=== PATIENT | male | born 1940 | race Caucasian/White ===

== ENCOUNTER → 2020-12-06 | Outpatient (CLI) | payer MEDICARE, BC, OTHER ==
[2020-12-06 16:31] LABS: Chol/HDL Ratio 3.02; LDL Cholesterol,Calculated 87.8 mg/dL (0.0-131.0); VLDL Calculation 15.2 mg/dL (5.00-40.00)
== END | disposition home or self-care (01) ==
LOC: LABWHC1 09:20
PROVIDERS: ATTEND Internal Medicine Cardiovascular Disease
DX: E78.2 Mixed hyperlipidemia (principal)
CPT/HCPCS: 36415; 80061; 84450; 84460

== ENCOUNTER → 2022-12-19 | Outpatient (CLI) | payer MEDICARE, BC, OTHER ==
[2022-12-19 21:55] LABS: ALT 17 U/L (10-49); AST 16 U/L (14-35); Chol/HDL Ratio 2.65 Ratio; LDL Cholesterol,Calculated 83.5 mg/dL (0.0-131.0); VLDL Calculation 12.94 mg/dL (5.00-40.00)
== END | disposition home or self-care (01) ==
LOC: LABWHC1 11:28
PROVIDERS: ATTEND Internal Medicine Cardiovascular Disease
DX: E78.2 Mixed hyperlipidemia (principal)
CPT/HCPCS: 36415; 80061; 84450; 84460

== ENCOUNTER 2023-03-14 18:56 | Emergency (ER) | payer OTHER, MEDICARE, BC ==
[2023-03-14 19:14] VITALS: BP 139/80; PULSE 78; RESP 20; TEMP 97.9
--- NOTE | 2023-03-14 20:26 | ED ---
Extremity Problem HPI - General Chief complaint: Extremity Problem,Nontraumatic Stated complaint: THUMBS LOCKED UP Time Seen by Provider: 03/14/23 20:06 Source: patient Mode of arrival: ambulatory Limitations: no limitations - History of Present Illness Initial comments: Patient is an 82-year-old male who presents to the emergency department for some issue. Patient states both of his thumbs locked up prior to arrival. He states he was unable to move them for about 5 seconds. He does have history of trigger finger surgery in the left thumb several years ago. Patient denies any pain. He has not noticed any redness, swelling, warmth. No numbness or tingling. - Related Data Home Medications Medication Instructions Recorded Confirmed Aspirin 81 mg PO DAILY 11/17/14 10/24/15 Benazepril HCl 20 mg PO BID 11/17/14 10/24/15 Calcium/Magnesium/Zinc 1 each PO DAILY 11/17/14 10/24/15 [Pdzhsmc-Qoetewvqd-Tkpd Tablet] Simvastatin [Zocor] 40 mg PO HS 11/17/14 10/24/15 Allergies Allergy/AdvReac Type Severity Reaction Status Date / Time wet duck feathers AdvReac Rash/Hives Uncoded 03/14/23 19:13 Review of Systems ROS Statement: Those systems with pertinent positive or pertinent negative responses have been documented in the HPI. ROS Other: All systems not noted in ROS Statement are negative. Past Medical History Past Medical History: Atrial Fibrillation, Hypertension History of Any Multi-Drug Resistant Organisms: None Reported Past Surgical History: Ablation, Orthopedic Surgery Additional Past Surgical History / Comment(s): Surgery on left thumb for "Trigger Finger". cardiac ablation. Past Anesthesia/Blood Transfusion Reactions: No Reported Reaction Past Psychological History: No Psychological Hx Reported Smoking Status: Former smoker Past Alcohol Use History: None Reported Past Drug Use History: None Reported - Past Family History Mother Family Medical History: No Reported History General Exam Limitations: no limitations General appearance: alert, in no apparent distress Head exam: Present: atraumatic, normocephalic, normal inspection Respiratory exam: Present: normal lung sounds bilaterally. Absent: respiratory distress, wheezes, rales, rhonchi, stridor Cardiovascular Exam: Present: regular rate, normal rhythm, normal heart sounds. Absent: systolic murmur, diastolic murmur, rubs, gallop, clicks Extremities exam: Present: normal inspection, normal capillary refill, other (No erythema, swelling, warmth, tenderness of the bilateral hands. Patient has full range of motion of his hands and thumbs. There is no locking of the thumbs. No popping or clicking sensation. No nodules appreciated) Neurological exam: Present: alert, oriented X3, CN II-XII intact Psychiatric exam: Present: normal affect, normal mood Skin exam: Present: warm, dry, intact, normal color. Absent: rash Course Vital Signs 03/14/23 19:07 Temperature 97.9 F Pulse Rate 78 Respiratory 20 Rate Blood Pressure 139/80 O2 Sat by Pulse 99 Oximetry Medical Decision Making - Medical Decision Making Was pt. sent in by a medical professional or institution (, PA, THERMAL ENGINEER, urgent care, hospital, or skilled nursing...) When possible be specific @ -No Did you speak to anyone other than the patient for history (EMS, parent, family, police, friend...)? What history was obtained from this source @ -No Did you review nursing and triage notes (agree or disagree)? Why? @ -I reviewed and agree with nursing and triage notes Were old charts reviewed (outside hosp., previous admission, EMS record, old EKG, old radiological studies, urgent care reports/EKG's, skilled nursing records)? Report findings @ -No old charts were reviewed Differential Diagnosis (chest pain, altered mental status, abdominal pain women, abdominal pain men, vaginal bleeding, weakness, fever, dyspnea, syncope, headache, dizziness, GI bleed, back pain, seizure, CVA, palpatations, mental health)? @ -triigger finger, arthritis, fracture, cellulitis, tenosynovitis. This list is not meant to be all-inclusive EKG interpreted by me (3pts min.). @ -As above X-rays interpreted by me (1pt min.). @ -None done CT interpreted by me (1pt min.). @ -None done] U/S interpreted by me (1pt. min.). @ -[None done] What testing was considered but not performed or refused? (CT, X-rays, U/S, labs)? Why? @ -[None] What meds were considered but not given or refused? Why? @ -[None] Did you discuss the management of the patient with other professionals (professionals i.e. , PA, THERMAL ENGINEER, lab, RT, psych nurse, social work administrator, message broker developer, teacher, district fire management officer, spring encaser)? Give summary @ -[No] Was smoking cessation discussed for >3mins.? @ -[No] Was critical care preformed (if so, how long)? @ -[No] Were there social determinants of health that impacted care today? How? (Homelessness, low income, unemployed, alcoholism, drug addiction, transportation, low edu. Level, literacy, decrease access to med. care, custodial, rehab)? @ -[No] Was there de-escalation of care discussed even if they declined (Discuss DNR or withdrawal of care, Hospice)? DNR status @ -[No] What co-morbidities impacted this encounter? (DM, HTN, Smoking, COPD, CAD, Cancer, CVA, ARF, Chemo, Hep., AIDS, mental health diagnosis, sleep apnea, morbid obesity)? @ -[None] Was patient admitted / discharged? Hospital course, mention meds given and route, prescriptions, significant lab abnormalities, going to OR and other pertinent info. @ -Patient presenting for episode of bilateral thumb locking sensation. Patient does have history of trigger finger of the left thumb the physical exam is unremarkable there is no locking of the thumbs during my evaluation. No popping or clicking sensation. No nodules appreciated. No evidence of infection. Patient has full range of motion and no pain he will be discharged with orthopedic referral Undiagnosed new problem with uncertain prognosis? @ -[No] Drug Therapy requiring intensive monitoring for toxicity (Heparin, Nitro, Insulin, Cardizem)? @ -[No] Were any procedures done? @ -[No] Diagnosis/symptom? @ -thumb problem Acute, or Chronic, or Acute on Chronic? @ -acute Uncomplicated (without systemic symptoms) or Complicated (systemic symptoms)? @ -uncomplicated Side effects of treatment? @ -[No] Exacerbation, Progression, or Severe Exacerbation? @ -[No] Poses a threat to life or bodily function? How? (Chest pain, [place], [place], pneumonia, PE, COPD, DKA, ARF, appy, cholecystitis, CVA, Diverticulitis, Homicidal, Suicidal, threat to staff... and all critical care pts) @ -[No] Dr. Greer is my attending Disposition Clinical Impression: Thumb problem Disposition: HOME SELF-CARE Condition: Good Instructions (If sedation given, give patient instructions): Trigger Finger (ED) Additional Instructions: Follow-up with orthopedically impaired teacher in 1-2 days. Return to the emergency department if you experience new, concerning, or worsening symptoms. Is patient prescribed a controlled substance at d/c from ED?: No Referrals: Daniel Quintana MD [Primary Care Provider] - 1-2 days Susanne Llanos DO [Doctor of Osteopathic Medicine] - 1-2 days
== END 2023-03-14 20:37 | disposition home or self-care (01) ==
LOC: EC 18:56
DX: M79.644 Pain in right finger(s) (principal); I10 Essential (primary) hypertension; I48.91 Unspecified atrial fibrillation; Z87.891 Personal history of nicotine dependence; Z79.82 Long term (current) use of aspirin; Z79.899 Other long term (current) drug therapy
CPT/HCPCS: 99283

== ENCOUNTER 2023-03-27 16:05 | Emergency (ER) | payer MEDICARE, BC, OTHER ==
[2023-03-27 16:43] VITALS: TEMP 97.8
--- NOTE | 2023-03-27 17:49 | ED ---
Male Urogenital HPI - General Chief complaint: Urogenital Stated complaint: urinating blood Time Seen by Provider: 03/27/23 16:59 Source: patient Mode of arrival: ambulatory Limitations: no limitations - History of Present Illness Initial comments: Patient is an 82-year-old male presenting with chief complaint of hematuria. Patient states that about an hour prior to arrival he noticed that he was urinating blood. Patient has history of kidney stones, he denies any abdominal pain, flank pain, or suprapubic pain. No recent injury or trauma. No blood thinners. No fevers or chills. No nausea or vomiting. No dysuria. - Related Data Home Medications Medication Instructions Recorded Confirmed Aspirin 81 mg PO DAILY 11/17/14 10/24/15 Benazepril HCl 20 mg PO BID 11/17/14 10/24/15 Calcium/Magnesium/Zinc 1 each PO DAILY 11/17/14 10/24/15 [Hljlbsw-Gychhzbwh-Kqwj Tablet] Simvastatin [Zocor] 40 mg PO HS 11/17/14 10/24/15 Allergies Allergy/AdvReac Type Severity Reaction Status Date / Time wet duck feathers AdvReac Rash/Hives Uncoded 03/27/23 16:43 Review of Systems ROS Statement: Those systems with pertinent positive or pertinent negative responses have been documented in the HPI. ROS Other: All systems not noted in ROS Statement are negative. Past Medical History Past Medical History: Atrial Fibrillation, Hypertension History of Any Multi-Drug Resistant Organisms: None Reported Past Surgical History: Ablation, Orthopedic Surgery Additional Past Surgical History / Comment(s): Surgery on left thumb for "Trigger Finger". cardiac ablation. Past Anesthesia/Blood Transfusion Reactions: No Reported Reaction Past Psychological History: No Psychological Hx Reported Smoking Status: Former smoker Past Alcohol Use History: None Reported Past Drug Use History: None Reported - Past Family History Mother Family Medical History: No Reported History General Exam Limitations: no limitations General appearance: alert, in no apparent distress Head exam: Present: atraumatic, normocephalic, normal inspection Eye exam: Present: normal appearance, EOMI. Absent: scleral icterus, periorbi john swelling Neck exam: Present: normal inspection, full ROM Respiratory exam: Present: normal lung sounds bilaterally. Absent: respiratory distress, wheezes, rales, rhonchi, stridor Cardiovascular Exam: Present: regular rate, normal rhythm, normal heart sounds. Absent: systolic murmur, diastolic murmur, rubs, gallop, clicks Back exam: Absent: CVA tenderness (R), CVA tenderness (L) Neurological exam: Present: alert, oriented X3, CN II-XII intact Psychiatric exam: Present: normal affect, normal mood Skin exam: Present: warm, dry, intact, normal color. Absent: rash Course Vital Signs 03/27/23 03/27/23 16:38 20:15 Temperature 97.8 F Pulse Rate 63 68 Respiratory 18 16 Rate Blood Pressure 143/90 134/68 O2 Sat by Pulse 97 99 Oximetry Medical Decision Making - Medical Decision Making Was pt. sent in by a medical professional or institution (, PA, PLASTIC EXTRUDING MACHINE OPERATOR, urgent care, hospital, or [facility]...) When possible be specific @ -No Did you speak to anyone other than the patient for history (EMS, parent, family, police, friend...)? What history was obtained from this source @ -No Did you review nursing and triage notes (agree or disagree)? Why? @ -I reviewed and agree with nursing and triage notes Were old charts reviewed (outside hosp., previous admission, EMS record, old EKG, old radiological studies, urgent care reports/EKG's, [facility] records)? Report findings @ -No old charts were reviewed Differential Diagnosis (chest pain, altered mental status, abdominal pain women, abdominal pain men, vaginal bleeding, weakness, fever, dyspnea, syncope, headache, dizziness, GI bleed, back pain, seizure, CVA, palpatations, mental health, musculoskeletal)? @ -Differential includes kidney stone, bladder cancer, prostate-related etiology, this is not an all inclusive list EKG interpreted by me (3pts min.). @ -As above X-rays interpreted by me (1pt min.). @ -None done CT interpreted by me (1pt min.). @ -CT shows moderate urinary bladder distention with innumerable bladder diverticula and prostatomegaly. U/S interpreted by me (1pt. min.). @ -None done What testing was considered but not performed or refused? (CT, X-rays, U/S, labs)? Why? @ -None What meds were considered but not given or refused? Why? @ -None Did you discuss the management of the patient with other professionals (professionals i.e. , PA, PLASTIC EXTRUDING MACHINE OPERATOR, lab, RT, psych nurse, certified social workers in health care, warp trucker, teacher, sheriff's officer, casey saw operator)? Give summary @ -No Was smoking cessation discussed for >3mins.? @ -No Was critical care preformed (if so, how long)? @ -No Were there social determinants of health that impacted care today? How? (Homelessness, low income, unemployed, alcoholism, drug addiction, transportation, low edu. Level, literacy, decrease access to med. care, penitentiary, re hab)? @ -No Was there de-escalation of care discussed even if they declined (Discuss DNR or withdrawal of care, Hospice)? DNR status @ -No What co-morbidities impacted this encounter? (DM, HTN, Smoking, COPD, CAD, Cancer, CVA, ARF, Chemo, Hep., AIDS, mental health diagnosis, sleep apnea, morbid obesity)? @ -None Was patient admitted / discharged? Hospital course, mention meds given and route, prescriptions, significant lab abnormalities, going to OR and other pertinent info. @ -Patient is an 10-year-old male presenting with chief complaint of hematuria that started today. He is having no abdominal or back pain. No fevers or chills. No dysuria. Lab work shows no leukocytosis or anemia. Urine shows large leukocytes with greater than 182 RBCs and 132 WBCs, may be due to contamination. CT without contrast shows bladder diverticula and prostatomegaly. Patient is resting comfortably. He is instructed to follow up with urology. Follow-up with PCP. Report back to ER with any new or worsening symptoms. Discussed return parameters and answered all questions. Patient conveyed verbal understanding and agreed to the plan. I discussed this case in detail with my attending Dr. Tyson Undiagnosed new problem with uncertain prognosis? @ -No Drug Therapy requiring intensive monitoring for toxicity (Heparin, Nitro, Insulin, Cardizem)? @ -No Were any procedures done? @ -No Diagnosis/symptom? @ -Hematuria Acute, or Chronic, or Acute on Chronic? @ -Acute Uncomplicated (without systemic symptoms) or Complicated (systemic symptoms)? @ -Uncomplicated Side effects of treatment? @ -No Exacerbation, Progression, or Severe Exacerbation? @ -No Poses a threat to life or bodily function? How? (Chest pain, [place], [place], pneumonia, PE, COPD, DKA, ARF, appy, cholecystitis, CVA, Diverticulitis, Homicidal, Suicidal, threat to staff... and all critical care pts) @ -No - Lab Data Result diagrams: 03/27/23 17:40 03/27/23 17:40 Lab Results 03/27/23 03/27/23 03/27/23 Range/Units 17:40 17:40 17:40 WBC 10.4 (3.8-10.6) k/uL RBC 5.29 (4.30-5.90) m/uL Hgb 14.8 (13.0-17.5) gm/dL Hct 46.4 (39.0-53.0) % MCV 87.6 (80.0-100.0) fL MCH 28.0 (25.0-35.0) pg MCHC 31.9 (31.0-37.0) g/dL RDW 13.7 (11.5-15.5) % Plt Count 233 (150-450) k/uL MPV 7.0 Neutrophils % 83 % Lymphocytes % 10 % Monocytes % 5 % Eosinophils % 1 % Basophils % 0 % Neutrophils # 8.6 H (1.3-7.7) k/uL Lymphocytes # 1.1 (1.0-4.8) k/uL Monocytes # 0.5 (0-1.0) k/uL Eosinophils # 0.1 (0-0.7) k/uL Basophils # 0.0 (0-0.2) k/uL Sodium 140 (137-145) mmol/L Potassium 4.2 (3.5-5.1) mmol/L Chloride 103 (98-107) mmol/L Carbon Dioxide 26 (22-30) mmol/L Anion Gap 11 mmol/L BUN 27 H (9-20) mg/dL Creatinine 0.84 (0.66-1.25) mg/dL Est GFR (CKD-EPI)AfAm >90 (>60 ml/min/1.73 sqM) Est GFR (CKD-EPI)NonAf 83 (>60 ml/min/1.73 sqM) Glucose 88 (74-99) mg/dL Calcium 9.0 (8.4-10.2) mg/dL Total Bilirubin 0.4 (0.2-1.3) mg/dL AST 23 (17-59) U/L ALT 21 (4-49) U/L Alkaline Phosphatase 66 (38-126) U/L Total Protein 7.5 (6.3-8.2) g/dL Albumin 4.5 (3.5-5.0) g/dL Urine Color Dark Red Urine Appearance Turbid (Clear) Urine pH 5.5 (5.0-8.0) Ur Specific [place] 1.017 (1.001-1.035) Urine Protein 1+ H (Negative) Urine Glucose (UA) Negative (Negative) Urine Ketones 1+ H (Negative) Urine Blood Large H (Negative) Urine Nitrite Negative (Negative) Urine Bilirubin Negative (Negative) Urine Urobilinogen <2.0 (<2.0) mg/dL Ur Leukocyte Esterase Large H (Negative) Urine RBC >182 H (0-5) /hpf Urine WBC 132 H (0-5) /hpf Disposition Clinical Impression: Hematuria Disposition: HOME SELF-CARE Condition: Good Instructions (If sedation given, give patient instructions): Hematuria (ED) Additional Instructions: Follow-up with PCP and urology. Report back to ER with any new or worsening symptoms. Is patient prescribed a controlled substance at d/c from ED?: No Referrals: Daniel Quintana MD [Primary Care Provider] - 1-2 days Gianluca Gomez MD [STAFF PHYSICIAN] - 1-2 days Time of Disposition: 20:02
[2023-03-27 17:53] LABS: Basophils % (A) 0 %; Eosinophils # (A) 0.1 k/uL (0-0.7); Eosinophils % (A) 1 %; HCT 46.4 % (39.0-53.0); HGB 14.8 gm/dL (13.0-17.5); Lymphocytes # (A) 1.1 k/uL (1.0-4.8); Lymphocytes % (A) 10 %; MCHC 31.9 g/dL (31.0-37.0); MCV 87.6 fL (80.0-100.0); Monocytes # (A) 0.5 k/uL (0-1.0); Monocytes % (A) 5 %; Neutrophils # (A) 8.6 k/uL (1.3-7.7); Neutrophils % (A) 83 %; Platelet Count 233 k/uL (150-450); RBC 5.29 m/uL (4.30-5.90); RDW 13.7 % (11.5-15.5); WBC 10.4 k/uL (3.8-10.6)
[2023-03-27 18:05] LABS: Appearance,Urine Turbid (Clear); Bilirubin,Urine Negative (Negative); Blood,Urine Large (Negative); Color,Urine Dark Red; Glucose,Urine (UA) Negative (Negative); Ketones,Urine 1+ (Negative); Leukocyte Esterase,Urine Large (Negative); Nitrite,Urine Negative (Negative); PH, Urine 5.5 (5.0-8.0); Protein,Urine 1+ (Negative); RBC,Urine >182 /hpf (0-5); Urobilinogen,Urine <2.0 mg/dL (<2.0); WBC,Urine 132 /hpf (0-5)
[2023-03-27 18:23] LABS: ALT 21 U/L (4-49); AST 23 U/L (17-59); African American GFR (CKD) >90 (>60 ml/min/1.73 sqM); Albumin 4.5 g/dL (3.5-5.0); Alkaline Phosphatase 66 U/L (38-126); Anion Gap 11 mmol/L; Blood Urea Nitrogen 27 mg/dL (9-20); Carbon Dioxide 26 mmol/L (22-30); Chloride 103 mmol/L (98-107); Glucose 88 mg/dL (74-99); Non-African American GFR(CKD) 83 (>60 ml/min/1.73 sqM); Potassium 4.2 mmol/L (3.5-5.1); Sodium 140 mmol/L (137-145); Total Bilirubin 0.4 mg/dL (0.2-1.3); Total Protein 7.5 g/dL (6.3-8.2)
[2023-03-27 18:24] LABS: Specific Gravity,Urine 1.017 (1.001-1.035)
--- NOTE | 2023-03-27 19:47 | CT ---
EXAMINATION TYPE: CT abdomen pelvis wo con DATE OF EXAM: 03/27/2023 HISTORY: hematuria w/ incontinence- just started today. CT DLP: 599 mGycm. Automated Exposure Control for Dose Reduction was Utilized. TECHNIQUE: CT scan of the abdomen and pelvis is performed without oral or IV contrast. COMPARISON: NONE FINDINGS: Within the limitations of a non-contrast study, the following observations are made. LUNG BASES: No significant abnormality is appreciated. LIVER/GB: Liver cysts are noted. No definite significant abnormality. PANCREAS: No acute process. SPLEEN: No significant abnormality is seen. ADRENALS: No nodules. KIDNEYS/URETERS: There is no hydronephrosis or hydroureter. No obstructing calcification. However, th ere are bilateral multifocal 3 mm-15 mm renal parenchymal and collecting system calcifications, and r ight renal cysts. The right and left renal pelves and ureters have normal appearance. BOWEL: No significant abnormality is seen. Colonic stool volume is quite prominent. PELVIC VISCERA: Moderate urinary bladder distention with innumerable bladder diverticula, and with pr ostatomegaly. LYMPH NODES: No greater than 1cm abdominal or pelvic lymph nodes are appreciated. OSSEOUS STRUCTURES: No significant abnormality is seen. Limitation: Without IV contrast there is limited CT sensitivity, particularly for focal visceral lesi ons, intraluminal filling defects, intravascular pathology. IMPRESSION: 1. Moderate urinary bladder distention with innumerable bladder diverticula, and with prostatomegaly . 2. Colonic stool volume is quite prominent.
[2023-03-27 20:23] VITALS: BP 134/68; PULSE 68; RESP 16
== END 2023-03-27 20:15 | disposition home or self-care (01) ==
LOC: EC 16:05
DX: R31.9 Hematuria, unspecified (principal); N32.3 Diverticulum of bladder; R33.8 Other retention of urine; I48.91 Unspecified atrial fibrillation; I10 Essential (primary) hypertension; Z87.891 Personal history of nicotine dependence; Z79.82 Long term (current) use of aspirin; Z79.899 Other long term (current) drug therapy; Z91.048 Other nonmedicinal substance allergy status
CPT/HCPCS: 36415; 74176; 80053; 81001; 85025; 87086; 99284

== ENCOUNTER → 2023-04-22 | Outpatient (CLI) | payer MEDICARE, BC, OTHER ==
[2023-04-22 15:06] LABS: Basophils # (A) 0.04 X 10*3/uL (0.00-0.10); Basophils % (A) 0.5 %; Eosinophils % (A) 2.4 %; HCT 44.8 % (39.6-50.0); HGB 13.7 g/dL (13.0-17.0); Immature Grans, Automated 0.2 %; Lymphocytes # (A) 1.45 X 10*3/uL (0.90-5.00); Lymphocytes % (A) 17.3 %; MCHC 30.6 g/dL (32.0-37.0); MCV 91.4 fL (80.0-97.0); Mean Platelet Volume 9.2 fL (9.5-12.2); Monocytes # (A) 0.67 X 10*3/uL (0.20-1.00); NRBC Per 100 WBC 0 /100 WBCS (0.0-0.0); Neutrophils # (A) 6.02 X 10*3/uL (1.80-7.70); Neutrophils % (A) 71.6 %; Platelet Count 256 X 10*3/uL (140-440); RDW 13.8 % (11.5-14.5)
[2023-04-22 15:32] LABS: African American GFR (CKD) 97.8 (60.0-200.0); BUN/Creat Ratio 33.38 Ratio (12.00-20.00); Blood Urea Nitrogen 26.7 mg/dL (9.0-27.0); Calcium 9.5 mg/dL (8.7-10.3); Non-African American GFR(CKD) 84.4 (60.0-200.0); Potassium 4.6 mmol/L (3.5-5.5)
[2023-04-22 15:33] LABS: Appearance,Urine Cloudy (Clear); Bilirubin,Urine Negative (Negative); Blood,Urine Moderate (Negative); Color,Urine Yellow (Yellow); Ketones,Urine Negative (Negative); Nitrite,Urine Negative (Negative); Specific Gravity,Urine 1.018 (1.001-1.030); Urobilinogen,Urine 0.2 (0.2,1.0)
[2023-04-22 16:10] LABS: Bacteria,Urine Trace /HPF (None Seen)
== END | disposition home or self-care (01) ==
LOC: LABPAT 10:06 → LABWHC1 10:06
PROVIDERS: ATTEND Urology
DX: Z01.812 Encounter for preprocedural laboratory examination (principal); D49.4 Neoplasm of unspecified behavior of bladder; R31.29 Other microscopic hematuria
CPT/HCPCS: 36415; 80048; 81001; 85025; 87086

== ENCOUNTER 2023-04-29 08:10 | Day surgery (SDC) | payer MEDICARE, BC, OTHER ==
[2023-04-23 08:58] VITALS: BMI 23.0
--- NOTE | 2023-04-29 07:51 | P.HPIHPCON ---
History of Present Illness H&P Date: 04/29/23 Chief Complaint: Bladder mass This is an 82-year-old male with history of gross hematuria, underwent a cystoscopy that showed evidence of a bladder mass. Discussed with him the option of a TURBT. Risks of bleeding infection and bladder perforation were discussed. He understood all the risk and agreed to proceed Consent for Procedure: I have explained the operation/procedure to the patient, including the risks, benefits, side effects, alternative therapies (including not receiving the proposed treatment or service), the likelihood of the patient achieving his/her goals, and potential recuperation problems for the procedure/sedation/analgesia, as well as any blood products, if indicated. I also explained to the patient the risks, benefits and side effects of the alternatives, as well as the risks related to not receiving the proposed procedure, care, treatment, or services. Past Medical History Past Medical History: Hyperlipidemia, Hypertension Additional Past Medical History / Comment(s): HX OF VENTRICULAR TACHYCARDIA (HAD ABOUT 4 CARDIAC ABLATIONS) History of Any Multi-Drug Resistant Organisms: None Reported Past Surgical History: Cardiac Ablation, Orthopedic Surgery Additional Past Surgical History / Comment(s): Surgery on left thumb for "Trigger Finger". cardiac ablation X4 Past Anesthesia/Blood Transfusion Reactions: No Reported Reaction Additional Past Anesthesia/Blood Transfusion Reaction / Comment(s): ONE OF HIS SURGERIES HE CAME OUT OF ANESTHIA AND WAS "HOSTILE" Past Psychological History: No Psychological Hx Reported Smoking Status: Former smoker Past Alcohol Use History: None Reported Past Drug Use History: None Reported - Past Family History Mother Family Medical History: No Reported History Medications and Allergies Home Medications Medication Instructions Recorded Confirmed Type Aspirin 81 mg PO DAILY 11/17/14 04/23/23 History Benazepril HCl 20 mg PO BID 11/17/14 04/23/23 History Calcium/Magnesium/Zinc 1 each PO DAILY 11/17/14 04/23/23 History [Xptkipw-Cpuxptgez-Tgwz Tablet] Simvastatin [Zocor] 40 mg PO HS 11/17/14 04/23/23 History Calcium Carbonate [Calcium] 1,200 mg PO DAILY 04/23/23 04/23/23 History Cholecalciferol [Vitamin D3 (125 125 mcg PO DAILY 04/23/23 04/23/23 History Mcg = 5000 Iu)] Allergies Allergy/AdvReac Type Severity Reaction Status Date / Time wet duck feathers AdvReac Rash/Hives Uncoded 04/23/23 08:51 Surgical - Exam - General no distress, no pain - Eyes normal ocular movement, no pale - ENT normal nares, normal mucosa - Respiratory normal expansion, normal respiratory effort - Abdomen Abdomen: soft, non tender Assessment and Plan Assessment: OR for TURBT
[~2023-04-29 08:10] MED LIST: DEXAMETHASONE SOD PHOSPHATE 4 MG/ML 1 ML VIAL IV ONE; HYDROmorphone 0.5 MG/0.5 ML SYRINGE IVP PRN; LACTATED RINGERS 1,000 ML IV SCH; LIDOCAINE 1% (10MG/ML) FOR IV START INTRADERMA PRN; MIDAZOLAM 2 MG/2 ML VIAL IV PRN; ONDANSETRON 4 MG/2 ML VIAL IVP ONE
[2023-04-29] MEDS ORDERED: PROPOFOL 10 MG/ML 20 ML VIAL IV ONE (10:02)
[2023-04-29] MEDS ORDERED: fentaNYL (PF) 50 MCG/ML 2 ML AMP ONE (10:02)
[2023-04-29] MEDS ORDERED: ePHEDrine 50 MG/ML 1 ML VIAL ONE (10:02)
[2023-04-29] MEDS ORDERED: LIDOCAINE 2% INJ 20 MG/ML (2 ML VIAL) ONE (10:02)
[2023-04-29] MEDS ORDERED: KETAMINE 10 MG/ML 20 ML VIAL ONE (10:02)
[2023-04-29] MEDS ORDERED: PHENYLEPHRINE-0.9% NACL SYG 1,000 MCG/10 ML SYRINGE ONE (10:02)
[2023-04-29 11:07] VITALS: RESP 16; TEMP 97
--- NOTE | 2023-04-29 11:18 | P.OP ---
Date of Procedure: 04/29/23 Preoperative Diagnosis: Bladder mass Postoperative Diagnosis: Same Procedure(s) Performed: TURBT (medium) Implants: none Anesthesia: PITER Surgeon: Josiah Mora Estimated Blood Loss (ml): 5 Pathology: other (Bladder mass) Condition: stable Disposition: PACU Indications for Procedure: This is an 82-year-old male with history of gross hematuria, underwent a cystoscopy that showed evidence of a bladder mass. Discussed with him the option of a TURBT. Risks of bleeding infection and bladder perforation were discussed. He understood all the risk and agreed to proceed Operative Findings: 3 cm bladder mass involving the left sided trigone, covering the ureteral orifice Description of Procedure: Patient brought to the operating room, general anesthesia was induced. He was prepped and draped so fashion a placement dorsal lithotomy position. Resectoscope fitted with 25-Prydeinig sheath was inserted per urethra. A 3 cm papillary solitary lesion was seen along the left side of the trigone covering the ureteral orifice. No additional lesions Throughout the bladder was , complete cystoscopy was performed including evaluating all the diverticula which showed no evidence of any additional tumors. Patient did have significant prostate enlargement with a large median lobe with intravesical extension. At this time attention was carried to the bladder tumor, using the bipolar resectoscope the tumor was resected down to muscle, the area of resection was thoroughly fulgurated. Given the tumor was covering the ureteral orifice the ureteral orifice was resected down on cut current. No coagulation was used near the UO. At this time all the specimen was irrigated out. Repeat cystoscopy showed no additional lesions or evidence of bleeding or evidence of bladder perforation. A 20-Prydeinig Prakash was placed with the return of clear urine. Patient tolerated procedure well was taken to recovery in stable condition
[2023-04-29 12:31] VITALS: BP 149/75; PULSE 67
== END 2023-04-29 12:56 | disposition home or self-care (01) ==
LOC: OR 08:10
PROVIDERS: ATTEND Urology
DX: C67.9 Malignant neoplasm of bladder, unspecified (principal); E78.5 Hyperlipidemia, unspecified; I10 Essential (primary) hypertension; I48.91 Unspecified atrial fibrillation; Z79.899 Other long term (current) drug therapy; Z87.891 Personal history of nicotine dependence
CPT/HCPCS: 52235; 88307; J1100; J0690; J2405; J3010; J2370; J2704; J2001

== ENCOUNTER → 2023-06-10 | Outpatient (CLI) | payer MEDICARE, BC, OTHER ==
--- NOTE | 2023-06-10 18:20 | US ---
EXAMINATION TYPE: US kidneys/renal and bladder DATE OF EXAM: 06/10/2023 COMPARISON: CT 2022 CLINICAL INDICATION: Male, 82 years old with history of C67.9 MALIGNANT NEOPLASM OF BLADDER, UNSPECIF IED; Bladder cancer per order, history of surgery for cancer per patient. EXAM MEASUREMENTS: Right Kidney: 11.7 x 7.0 x 6.1 cm Left Kidney: 12.8 x 5.8 x 6.8 cm Right Kidney: -2 Hyperechoic foci with shadowing seen, larger is at mid: 1.2 x 1.3 x 1.1 cm. -Anechoic area seen medial at lower pole: 3.1 x 3.3 x 3.4 cm. -Complex area seen laterally at mid pole: 5.8 x 4.2 x 4.1 cm. Left Kidney: Slightly enlarged. -Hydronephrosis seen. -Multiple hyperechoic foci with shadowing seen throughout, largest is at lower pole: 2.1 x 1.5 x 1.1 cm. -Anechoic area seen upper pole: 1.1 x 1.4 x 1.4 cm. Bladder: Appearance of innumerable amounts of bladder diverticula. Bilateral Jets seen: Yes Prostate appears prominent in bladder imagin.5 cm in width, unable to accurately measure other dimensions. IMPRESSION: 1. Dilation of the left collecting system which may represent hydronephrosis consider CT evaluation as clinically warranted. 2. Bilateral nonobstructing calculus. 3. Right renal simple appearing cyst. 4. Layering debris within the urinary bladder with bladder diverticula correlate with urinalysis.
== END | disposition home or self-care (01) ==
LOC: RADUSWWP 14:14
PROVIDERS: ATTEND Urology
DX: C67.9 Malignant neoplasm of bladder, unspecified (principal); N20.0 Calculus of kidney; N32.3 Diverticulum of bladder
CPT/HCPCS: 76770

== ENCOUNTER → 2024-01-07 | Outpatient (CLI) | payer MEDICARE, BC, OTHER ==
[2024-01-08 05:14] LABS: Toxoplasma Antibody (IgG) 14.5 IU/mL (<7.2); Toxoplasma Antibody (IgM) <3.0 AU/mL (<8.0)
== END | disposition home or self-care (01) ==
LOC: LABWHC1 09:23
PROVIDERS: ATTEND Ophthalmology
DX: B58.9 Toxoplasmosis, unspecified (principal); B39.4 Histoplasmosis capsulati, unspecified
CPT/HCPCS: 36415; 86777; 86778

== ENCOUNTER → 2024-06-23 | Outpatient (CLI) | payer MEDICARE, BC, OTHER ==
[2024-06-23 15:20] LABS: ALT 14 U/L (10-49); AST 18 U/L (14-35); Chol/HDL Ratio 2.66 Ratio; LDL Cholesterol,Calculated 84.2 mg/dL (0.0-131.0)
== END | disposition home or self-care (01) ==
LOC: LABWHC1 08:37
PROVIDERS: ATTEND Internal Medicine Interventional Cardiology
DX: E78.2 Mixed hyperlipidemia (principal)
CPT/HCPCS: 36415; 80061; 84450; 84460

== ENCOUNTER → 2024-12-27 | Outpatient (CLI) | payer MEDICARE, BC, OTHER ==
[2024-12-27 15:26] LABS: ALT 13 U/L (10-49); LDL Cholesterol,Calculated 78.8 mg/dL (0.0-131.0); VLDL Calculation 11.32 mg/dL (5.00-40.00)
[2024-12-27 15:27] LABS: AST 16 U/L (14-35)
== END | disposition home or self-care (01) ==
LOC: LABWHC1 09:28
PROVIDERS: ATTEND Internal Medicine Cardiovascular Disease
DX: E78.2 Mixed hyperlipidemia (principal)
CPT/HCPCS: 36415; 80061; 84450; 84460